=== PATIENT | female | born 1995 | race Caucasian/White ===

== ENCOUNTER 2017-12-09 07:50 | Emergency (ER) | payer OTHER ==
[~2017-12-09] VITALS: Ht 165.1 cm; Wt 149.7 kg
[2017-12-09] MEDS ORDERED: VENTOLIN HFA 1818 GM INH (08:17)
[2017-12-09] MEDS ORDERED: BACTRIM DS TAB1 EACH PO (08:56)
[2017-12-09 12:06] VITALS: BP 148/86
== END 2017-12-09 12:07 | disposition home or self-care (01) ==
LOC: M.ERS 07:50
DX: L03.116 Cellulitis of left lower limb (principal); L03.115 Cellulitis of right lower limb; J45.909 Unspecified asthma, uncomplicated; I10 Essential (primary) hypertension; Z88.0 Allergy status to penicillin; Z88.6 Allergy status to analgesic agent; Z90.49 Acquired absence of other specified parts of digestive tract

== ENCOUNTER → 2018-03-16 | Outpatient (CLI) | payer OTHER ==
[~2018-03-16] MED LIST: BACTRIM DS TAB1 EACH PO; VENTOLIN HFA 1818 GM INH
[2018-03-16 11:53] LABS: ABSOLUTE BASOPHILS 0.1 thou/uL (0.0-0.2); ABSOLUTE EOSINOPHILS 0.1 thou/uL (0.0-0.7); ABSOLUTE LYMPHOCYTES 2.5 thou/uL (0.8-5.3); ABSOLUTE MONOCYTES 0.4 thou/uL (0.0-1.2); ABSOLUTE NEUTROPHILS 5.8 thou/uL (1.6-8.1); BASOPHILS 0.6 %; HEMATOCRIT 37.7 % (37.0-47.0); HEMOGLOBIN 11.9 gm/dL (12.0-15.0); LYMPHOCYTES 27.8 %; MCH 27.2 pg (26.0-34.0); MCHC 31.7 g/dL (28.0-37.0); MONOCYTES 4.8 %; MPV 8.2 fl. (7.2-11.1); NUCLEATED RBCS 0 /100WBC; PLATELET COUNT* 304 thou/uL (150-400); POLYS 65.8 %; RBC 4.38 mil/uL (4.20-5.00); RDW-CV 13.4 % (10.5-14.5); WBC 8.8 thou/uL (4.0-11.0)
[2018-03-16 12:12] LABS: ALBUMIN 3.4 g/dL (3.4-5.0); ALKALINE PHOSPHATASE 67 U/L (46-116); ANION GAP 8 mmol/L (7-16); BUN 11 mg/dL (7-18); CALCIUM 8.5 mg/dL (8.5-10.1); CHLORIDE 104 mmol/L (98-107); CHOLESTEROL 146 mg/dL (<200); CO2 26 mmol/L (21-32); CREATININE 0.7 mg/dL (0.6-1.3); GLUCOSE 98 mg/dL (70-99); HDL CHOLESTEROL 43 mg/dL (>40); LDL CHOLESTEROL 90 mg/dL (<100); POTASSIUM 4.1 mmol/L (3.5-5.1); SGOT 12 U/L (15-37); SGPT 26 U/L (30-65); SODIUM 138 mmol/L (136-145); TC:HDL 3.4 Ratio (Not establshd); TOTAL BILIRUBIN 0.4 mg/dL (<0.1-1.0); TOTAL PROTEIN 7.3 g/dL (6.4-8.2); TRIGLYCERIDE 65 mg/dL (<150); VLDL 13 mg/dL (<40)
[2018-03-16 12:19] LABS: SERUM ASSESSMENT Clear
[2018-03-17 09:23] LABS: % SATURATION 20 % (20-39); IRON 79 ug/dL (50-175)
== END ==
LOC: M.LAB 11:20
PROVIDERS: Family Medicine
DX: Z00.00 Encounter for general adult medical examination without abnormal findings (principal)

== ENCOUNTER → 2018-06-25 | Outpatient (CLI) | payer OTHER | LOC: M.ULTRA 07:42 | DX: N83.291 Other ovarian cyst, right side (principal); N83.292 Other ovarian cyst, left side ==

== ENCOUNTER → 2018-07-05 | Outpatient (CLI) | payer OTHER ==
[2018-07-05 08:54] LABS: CHOLESTEROL 156 mg/dL (<200); GLUCOSE 109 mg/dL (70-99); HDL CHOLESTEROL 46 mg/dL (>40); LDL CHOLESTEROL 101 mg/dL (<100); SERUM ASSESSMENT Clear; TC:HDL 3.4 Ratio (Not establshd); TRIGLYCERIDE 49 mg/dL (<150); VLDL 10 mg/dL (<40)
[2018-07-05 13:12] LABS: PROLACTIN 16.1 ng/mL (4.8-23.3); TESTOSTERONE 19 ng/dL (8-48)
[2018-07-05 16:09] LABS: INSULIN 17.1 uIU/mL (2.6-24.9)
[2018-07-06 05:08] LABS: GLYCOHEMOGLOBIN (HGB A1C) 5.4 % (4.8-5.6)
[2018-07-06 22:08] LABS: FREE TESTOSTERONE 1.3 pg/mL (0.0-4.2)
== END ==
LOC: M.LAB 08:01
PROVIDERS: Specialist
DX: E28.2 Polycystic ovarian syndrome (principal)

== ENCOUNTER 2018-08-16 21:13 | Emergency (ER) | payer OTHER ==
[~2018-08-16] VITALS: Ht 167.6 cm; Wt 149.7 kg
[2018-08-16] MEDS ORDERED: LEXAPRO20 MG (21:21)
[2018-08-16] MEDS ORDERED: OMEPRAZOLE20 MG (21:21)
[2018-08-16] MEDS ORDERED: CENTRUM SILVER1 EAC6 (21:22)
[2018-08-16] MEDS ORDERED: birth control (21:22)
[2018-08-16] MEDS ORDERED: HYDROCODON-ACE1 EAC7 PO (21:41)
[2018-08-16] MEDS ORDERED: FLEXERIL PO (21:41)
[2018-08-16 21:59] VITALS: BP 153/88
== END 2018-08-16 22:00 | disposition home or self-care (01) ==
LOC: M.ERS 21:13
DX: M54.5 Low back pain (principal); J45.909 Unspecified asthma, uncomplicated; I10 Essential (primary) hypertension; F41.9 Anxiety disorder, unspecified; F32.9 Major depressive disorder, single episode, unspecified; Z88.0 Allergy status to penicillin; Z88.5 Allergy status to narcotic agent; Z90.49 Acquired absence of other specified parts of digestive tract

== ENCOUNTER → 2018-09-03 | Outpatient (CLI) | payer OTHER ==
[~2018-09-03] MED LIST changes: +CENTRUM SILVER1 EAC6; +FLEXERIL PO; +HYDROCODON-ACE1 EAC7 PO; +LEXAPRO20 MG; +OMEPRAZOLE20 MG; +birth control
== END ==
LOC: M.RAD 14:25
DX: M54.5 Low back pain (principal)

== ENCOUNTER 2019-02-14 19:39 | Emergency (ER) | payer OTHER ==
[~2019-02-14] VITALS: Ht 165.1 cm; Wt 154.2 kg
[2019-02-14 21:34] VITALS: BP 150/111
== END 2019-02-14 21:34 | disposition home or self-care (01) ==
LOC: M.ERS 19:39
DX: M79.671 Pain in right foot (principal); I10 Essential (primary) hypertension; F41.9 Anxiety disorder, unspecified; F32.9 Major depressive disorder, single episode, unspecified; J45.909 Unspecified asthma, uncomplicated; Z88.5 Allergy status to narcotic agent; Z88.0 Allergy status to penicillin; Z90.49 Acquired absence of other specified parts of digestive tract

== ENCOUNTER → 2019-06-06 | Outpatient (CLI) | payer OTHER | LOC: M.LAB 14:40 | DX: N92.6 Irregular menstruation, unspecified (principal) ==

== ENCOUNTER → 2019-06-08 | Outpatient (CLI) | payer OTHER | LOC: M.ULTRA 09:30 | DX: N92.6 Irregular menstruation, unspecified (principal); N83.02 Follicular cyst of left ovary; E66.01 Morbid (severe) obesity due to excess calories; Z68.43 Body mass index [BMI] 50.0-59.9, adult ==

== ENCOUNTER 2019-07-03 11:44 | Emergency (ER) | payer OTHER ==
[~2019-07-03] VITALS: Ht 165.1 cm; Wt 163.3 kg
[2019-07-03 12:47] LABS: INFLUENZA A ANTIGEN Negative (Negative); INFLUENZA B ANTIGEN Negative (Negative)
[2019-07-03 13:40] LABS: ABSOLUTE LYMPHOCYTES 1.5 thou/uL (0.8-5.3); ABSOLUTE MONOCYTES 0.3 thou/uL (0.0-1.2); ABSOLUTE NEUTROPHILS 3.6 thou/uL (1.6-8.1); BASOPHILS 0.8 %; EOSINOPHILS 0.2 %; HEMATOCRIT 40.1 % (37.0-47.0); LYMPHOCYTES 26.9 %; MCH 27.1 pg (26.0-34.0); MCHC 32.5 g/dL (28.0-37.0); MCV 83.3 fL (80.0-100.0); MONOCYTES 6.3 %; MPV 8.4 fl. (7.2-11.1); NUCLEATED RBCS 0 /100WBC; PLATELET COUNT* 257 thou/uL (150-400); POLYS 65.8 %; RBC 4.81 mil/uL (4.20-5.00); RDW-CV 13.7 % (10.5-14.5); WBC 5.4 thou/uL (4.0-11.0)
[2019-07-03 13:49] LABS: CALCIUM 7.9 mg/dL (8.5-10.1); CREATININE 0.8 mg/dL (0.6-1.3)
[2019-07-03 13:58] LABS: ALBUMIN 3.5 g/dL (3.4-5.0); TOTAL BILIRUBIN 0.2 mg/dL (<0.1-1.0); TOTAL PROTEIN 7.5 g/dL (6.4-8.2)
[2019-07-03] MEDS ORDERED: ZPAK PO (14:05)
[2019-07-03 14:25] VITALS: BP 138/87
== END 2019-07-03 14:36 | disposition home or self-care (01) ==
LOC: M.ERS 11:44
PROVIDERS: Emergency Medicine Emergency Medical Services
DX: J18.9 Pneumonia, unspecified organism (principal); R55 Syncope and collapse; J45.909 Unspecified asthma, uncomplicated; Z90.49 Acquired absence of other specified parts of digestive tract; Z88.0 Allergy status to penicillin; Z88.5 Allergy status to narcotic agent

== ENCOUNTER → 2019-09-12 | Outpatient (CLI) | payer OTHER ==
[~2019-09-12] MED LIST changes: +ZPAK PO
== END ==
LOC: M.LAB 12:11
PROVIDERS: ATTEND Family Medicine
DX: U07.1 COVID-19 (principal)